=== PATIENT | female | born 1990 | race Caucasian/White ===

== ENCOUNTER 2016-11-27 08:44 | Emergency (ER) | payer OTHER ==
[~2016-11-27 08:44] MED LIST: ALBUTEROL SULF8.5 GM IH; ALBUTEROL17 GM INH; AMOXIL875 MG PO; BACTRIM DS TABL1 TAB PO; FLOXIN10 ML OT; NO MEDS CURRENTLY; SYNTHROID25 MCG PO; SYNTHROID88 MC1 PO
[2016-11-27] MEDS ORDERED: ZOLOFT100 M1 PO (09:04)
[2016-11-27] MEDS ORDERED: PRILOSEC OTC20 M1 PO (09:59)
[2017-03-28] MEDS ORDERED: ZOFRAN4 M2 PO (04:04)
[2017-03-28] MEDS ORDERED: NORCO 5/3251 TAB PO (04:04)
== END 2016-11-27 10:08 ==
LOC: EDMED 08:44
DX: K21.9 Gastro-esophageal reflux disease without esophagitis (principal); E03.9 Hypothyroidism, unspecified; J45.909 Unspecified asthma, uncomplicated; Z79.890 Hormone replacement therapy; Z79.51 Long term (current) use of inhaled steroids